=== PATIENT | female | born 1980 | race Caucasian/White ===

== ENCOUNTER 2018-01-24 19:42 | Inpatient (IN) | payer OTHER ==
[~2018-01-24] VITALS: Ht 152.4 cm; Wt 73.0 kg
[2018-01-25] MEDS ORDERED: METROPOLOL PO (09:53)
[2018-01-27] MEDS ORDERED: TOPROL XL25 MG PO (09:32)
== END 2018-01-29 11:02 | DRG 743 ==
LOC: O/R 01-26 09:23 → OB/GYN 01-26 09:23 → SURH 01-26 11:15 → OB/GYN 01-26 17:30 → SURH 01-26 19:41 → OB/GYN 01-29 11:02
PROVIDERS: Obstetrics & Gynecology
PROC: 0UT90ZZ Resection of Uterus, Open Approach (ICD-10-PCS; principal; 2018-01-26 11:15)
PROC: 0UT70ZZ Resection of Bilateral Fallopian Tubes, Open Approach (ICD-10-PCS; 2018-01-26 11:15)
DX: N93.8 Other specified abnormal uterine and vaginal bleeding (principal); D25.1 Intramural leiomyoma of uterus; D25.2 Subserosal leiomyoma of uterus; N72 Inflammatory disease of cervix uteri